=== PATIENT | female | born 1970 | race Caucasian/White ===

== ENCOUNTER 2016-09-22 00:43 | Emergency (ER) | payer OTHER ==
[~2016-09-22] VITALS: Ht 170.2 cm; Wt 106.0 kg
[2016-09-22] MEDS ORDERED: JANU100T14 (01:13)
[2016-09-22] MEDS ORDERED: ATOR80TA59 (01:13)
[2016-09-22] MEDS ORDERED: PROAAER10 (01:13)
[2016-09-22] MEDS ORDERED: ISOS30TA4 (01:13)
[2016-09-22] MEDS ORDERED: ADV250INH (01:13)
[2016-09-22] MEDS ORDERED: BUPR150T5 (01:13)
[2016-09-22] MEDS ORDERED: NITR0.4S14 (01:13)
[2016-09-22] MEDS ORDERED: METO-346 (01:13)
[2016-09-22] MEDS ORDERED: BRIL90TA (01:13)
[2016-09-22] MEDS ORDERED: NAPR500T PO (02:40)
[2016-09-22] MEDS ORDERED: PERC5TAB12 PO (02:40)
[2016-09-22] MEDS ORDERED: ROBA500T PO (02:40)
[2016-09-22] MEDS ORDERED: KETOROLAC 60 MG/2 ML VIAL (J1885) IM ONE (02:45)
[2016-09-22] MEDS ORDERED: METHOCARBAMOL 500 MG TAB PO ONE (02:45)
[2016-09-22] MEDS ORDERED: OXYCODONE/APAP 5MG/325MG(BULK FOR ED) 1 TABLET PO ONE (02:45)
[2016-09-22 03:07] VITALS: BP 131/77
[2016-10-27] MEDS ORDERED: FLOM5CAP PO (10:24)
== END 2016-09-22 03:16 | disposition home or self-care (01) ==
LOC: M ED 02:14
DX: M54.5 Low back pain (principal); E11.9 Type 2 diabetes mellitus without complications; I10 Essential (primary) hypertension; I25.10 Atherosclerotic heart disease of native coronary artery without angina pectoris; Z79.899 Other long term (current) drug therapy; Z79.84 Long term (current) use of oral hypoglycemic drugs; F17.210 Nicotine dependence, cigarettes, uncomplicated; F12.20 Cannabis dependence, uncomplicated
CPT/HCPCS: 96372; 99282; J1885

== ENCOUNTER 2017-02-15 21:20 | Emergency (ER) | payer OTHER ==
[~2017-02-15] VITALS: Ht 170.2 cm; Wt 104.5 kg
[~2017-02-15 21:20] MED LIST: ADV250INH; ATOR80TA59; BRIL90TA; BUPR150T5; FLOM5CAP PO; ISOS30TA4; JANU100T14; METO-346; NAPR500T PO; NITR0.4S14; PERC5TAB12 PO; PROAAER10; ROBA500T PO
[2017-02-15 21:38] VITALS: BP 159/89
[2017-02-15] MEDS ORDERED: PERCOCET 5MG/325MG TAB PO ONE (23:15)
--- NOTE | 2017-02-16 00:40 | REPUSA ---
CLINICAL HISTORY: Edema. COMMENTS: Real time sonography with duplex doppler of the right lower extremity was performed with attention to the major deep venous structures. Evaluation reveals the right common femoral, superficial femoral and popliteal veins to be completely compressible without intraluminal thrombus. There is normal spontaneous phasic flow and augmentation . The greater saphenous/common femoral vein junction is patent. IMPRESSION: No evidence of DVT in right lower extremity. Thank you for your kind referral of this patient.
[2017-02-16] MEDS ORDERED: ULTR50TA8 PO (01:57)
== END 2017-02-16 02:06 | disposition home or self-care (01) ==
LOC: M ED 21:20
DX: M17.11 Unilateral primary osteoarthritis, right knee (principal); Z72.0 Tobacco use

== ENCOUNTER 2018-05-26 14:09 | Emergency (ER) | payer OTHER ==
[~2018-05-26] VITALS: Ht 170.2 cm; Wt 102.3 kg
[~2018-05-26 14:09] MED LIST changes: +FLOM0.4C39 PO; -FLOM5CAP PO; +NAPR-50 PO; -NAPR500T PO; +ULTR50TA8 PO
[2018-05-26] MEDS ORDERED: METO1TAB32 (14:22)
[2018-05-26] MEDS ORDERED: IPRATROPIUM 0.5MG/ALBUTEROL 2.5MG INH SOL UD 3ML (DUONEB)(J7620) NEB ONE (17:00)
[2018-05-26] MEDS ORDERED: predniSONE 20 MG TAB PO ONE (17:00)
[2018-05-26] MEDS ORDERED: ZITHTAB PO (18:01)
[2018-05-26] MEDS ORDERED: PRED20TA PO (18:01)
[2018-05-26 18:06] VITALS: BP 128/75
--- NOTE | 2018-05-27 07:45 | REP ---
Clinical: Cough. Technique: PA and lateral. Comparison: 07/19/2015. Findings: Very subtle areas of opacity involve the left infrahilar lower lobe which should be correlated with auscultation and may represent early infiltrate/pneumonia. Associated left hilar adenopathy cannot be excluded as well. No further consolidation. No effusion. No pneumothorax. Mediastinum and cardiac silhouette are normal. Skeletal structures are intact. Calcific tendinopathy involving the left shoulder noted. Impression: Left hilar adenopathy and subtle left lower lobe opacity may reflect infiltrate/ pneumonia and correlation is recommended. Electronically Signed by Wiliam Hart MD 05/26/2018 03:05 P
--- NOTE | 2018-05-27 16:18 | ED PDOC ---
Post-Departure Follow-Up certified letter sent to pt re formal read of cxr. see report. needs fu. obtain pcp name/# and fax Bart Medrano MD May 27, 2018 16:18
== END 2018-05-26 18:08 | disposition home or self-care (01) ==
LOC: M ED 14:09
DX: J18.1 Lobar pneumonia, unspecified organism (principal); I48.91 Unspecified atrial fibrillation; I25.2 Old myocardial infarction; E78.5 Hyperlipidemia, unspecified; R51 Headache; M54.9 Dorsalgia, unspecified; Z95.5 Presence of coronary angioplasty implant and graft; F17.200 Nicotine dependence, unspecified, uncomplicated; Z88.8 Allergy status to other drugs, medicaments and biological substances; Z79.899 Other long term (current) drug therapy; Z79.51 Long term (current) use of inhaled steroids; Z79.84 Long term (current) use of oral hypoglycemic drugs

== ENCOUNTER → 2018-05-31 | Outpatient (CLI) | payer OTHER ==
[~2018-05-31] MED LIST changes: +METO1TAB32; +PRED20TA PO; +ZITHTAB PO
--- NOTE | 2018-05-31 10:29 | REP ---
Clinical: History of pneumonia. . Comparison: 05/26/2018 . Technique: PA and lateral. Findings: The mediastinum and cardiac silhouette are normal. Demonstrate mild coarsened interstitial markings which may reflect chronic reactive airway disease or bronchitis. No discrete focal consolidation, effusion, or pneumothorax. Impression: 1. No focal consolidation. Electronically Signed by Wiliam Hart MD 05/31/2018 10:21 A
== END ==
LOC: M LRY 10:04
PROVIDERS: ATTEND Nurse Practitioner Family
DX: Z87.01 Personal history of pneumonia (recurrent) (principal)

== ENCOUNTER 2021-01-19 13:07 | Emergency (ER) | payer OTHER ==
[~2021-01-19] VITALS: Ht 167.6 cm; Wt 95.5 kg
[~2021-01-19 13:07] MED LIST changes: +ISOS1TAB35; -ISOS30TA4; -NAPR-50 PO; +NAPR-837 PO
[2021-01-19] MEDS ORDERED: BRIL90TA PO (13:14)
--- OUTSIDE RECORDS SUMMARY | 2021-01-19 13:17 | CCD ---
Author Author [facility] Address Unknown Phone Unavailable Support Name Relationship Address Phone UE Next Of Kin Unknown Unavailable NAVARRO [place] [id number] Re-disclosure Warning The records that you are about to access may contain information from federally-assisted alcohol or drug abuse programs. If such information is present, then the following federally mandated warning applies: This information has been disclosed to you from records protected by federal confidentiality rules (42 CFR part 2). The federal rules prohibit you from making any further disclosure of this information unless further disclosure is expressly permitted by the written consent of the person to whom it pertains or as otherwise permitted by 42 CFR part 2. A general authorization for the release of medical or other information is NOT sufficient for this purpose. The Federal rules restrict any use of the information to criminally investigate or prosecute any alcohol or drug abuse patient.The records that you are about to access may contain highly sensitive health information, the redisclosure of which is protected by Article 27-F of the [facility] Public Health law. If you continue you may have access to information: Regarding HIV / AIDS; Provided by facilities licensed or operated by the [facility] Office of Mental Health; or Provided by the [facility] Office for People With Developmental Disabilities. If such information is present, then the following [facility] mandated warning applies: This information has been disclosed to you from confidential records which are protected by state law. State law prohibits you from making any further disclosure of this information without the specific written consent of the person to whom it pertains, or as otherwise permitted by law. Any unauthorized further disclosure in violation of state law may result in a fine or detention sentence or both. A general authorization for the release of medical or other information is NOT sufficient authorization for further disc losure. Immunizations Vaccine Date Status Description Data Source(s) COVID-19 VACCINE Moderna 10/27/2020 12:00:00 AM EDT completed [facility] Vaccine Series Complete: NOThis Data was Submitted to [facility] Via [employer] Medications No Information Insurance Providers Payer name Policy type / Coverage type Policy ID Covered libertarian ID Covered libertarian's relationship to cruz Policy Cruz Plan Information [facility] [id number] [facility] [id number] SP [id number] [facility] [id number] ANSI-Commercial [id number] [facility] O [id number] S [id number] [facility] O [id number] S [id number] [facility] P [id number] S [id number] P UNAVAILABLE UNAVAILA BLE [facility] [id number] [facility] [id number] [facility] [id number] SELF PAY UNAVAILABLE UNAVAILA BLE [facility] [id number] OTHER1 [id number] Problems, Conditions, and Diagnoses No Information Surgeries/Procedures No Information Results No Information Social History No Information
--- OUTSIDE RECORDS SUMMARY | 2021-01-19 17:25 | CCD ---
Author [facility] Address Unknown Phone Unavailable Support Name Relationship Address Phone UE Next Of Kin Unknown Unavailable NAVARRO [place] [address] Re-disclosure Warning The records that you are [...] is protected by Article 27-F of the [facility] Public Health law. If you continue you may have access to information: Regarding HIV / AIDS; Provided by facilities licensed or operated by the [facility] Office of Mental Health; or Provided by the [facility] Office for People With Developmental Disabilities. If such information is present, then the following [facility] mandated warning applies: This information has [...] law may result in a fine or alf sentence or both. A general authorization for the release of medical or other information is NOT sufficient authorization for further disc losure. Immunizations Vaccine Date Status Description Data Source(s) COVID-19 VACCINE Moderna 10/27/2020 12:00:00 AM EDT completed [facility] Vaccine Series Complete: NOThis Data was Submitted to [facility] Via [employer]. Medications No Information Insurance Providers Payer name Policy type / Coverage type Policy ID Covered green party ID Covered green party's relationship to cruz Policy Cruz Plan Information [facility] [id number] [facility] [id number] SP [id number] [facility] [id number] ANSI-Commercial [id number] [facility] O [id number] S [id number] [facility] O [id number] S [id number] [facility] P [id number] S [id number] P UNAVAILABLE UNAVAILA BLE [facility] [id number] [facility] [id number] [facility] [place] 2] [id number] SELF PAY UNAVAILABLE UNAVAILA BLE [facility] [id number] OTHER1 [id number] Problems, Conditions, and Diagnoses No Information Surgeries/Procedures No Information Results No Information Social History No Information
--- NOTE | 2021-01-19 20:06 | REPVR ---
PROCEDURE INFORMATION: Exam: CT Abdomen And Pelvis Without Contrast Exam date and time: 01/19/2021 6:47 PM Age: 50 years old Clinical indication: Abdominal pain; Localized; Right; Additional info: Right flank pain TECHNIQUE: Imaging protocol: Computed tomography of the abdomen and pelvis without contrast. Radiation optimization: All CT scans at this facility use at least one of these dose optimization techniques: automated exposure control; mA and/or kV adjustment per patient size (includes targeted exams where dose is matched to clinical indication); or iterative reconstruction. COMPARISON: CT ABD PELVIS W/O CONTRAST 10/27/2016 8:49 AM FINDINGS: Lungs: The imaged portions of the lung bases are clear. The lungs were not fully imaged. Heart: No cardiomegaly or pericardial effusion is noted. There are coronary artery calcifications. Liver: No liver lesion is seen. The contour of the liver is smooth. The liver is enlarged and in craniocaudal dimension and at the level of the right midclavicular line, the liver measures 16.3 cm. Gallbladder and bile ducts: No calcified gallstones are noted. No gallbladder wall thickening, pericholecystic fluid, or pericholecystic inflammatory changes are identified. Pancreas: Unremarkable. No dilation of the main pancreatic duct is noted. Spleen: Unremarkable. No splenomegaly is noted. Adrenal glands: Normal. No adrenal mass is noted. Kidneys and ureters: The kidneys are unremarkable. No renal lesion is noted. No stones are noted in the kidneys or ureters. There is no hydronephrosis or hydroureter. Stomach and bowel: The stomach is decompressed, limiting its optimal evaluation. The small bowel is unremarkable. There is no evidence for a bowel obstruction, diverticulosis, diverticulitis, colitis, perforated viscus, pneumatosis intestinalis, intussusception, or volvulus. There is a mild amount of formed stool in the colon. Appendix: The retrocecal appendix is normal. No evidence for appendicitis. Intraperitoneal space: No free air. No ascites. No abscess. Retroperitoneal space: Unremarkable. Vasculature: The abdominal aorta is normal in caliber. There are mild atherosclerotic calcifications. Lymph nodes: No enlarged lymph nodes. Urinary bladder: The partially distended urinary bladder is unremarkable. No stones or masses are seen in the bladder. Reproductive: There is a lobulated contour involving the dorsal aspect of the fundus of the uterus, which is similar in appearance compared to the CT abdomen and pelvis on 10/27/2016, and likely represents a uterine fibroid. The ovaries are unremarkable. Bones/joints: There is no fracture. There are degenerative changes involving the lower thoracic spine and lumbar spine. There is a grade 1 anterolisthesis of L4 on L5 secondary to severe osteoarthritis of the L4-L5 facet joints. There is mild osteoarthritis of both hips. Incidental note is made of small bone islands in the femoral heads, which are unchanged compared to the CT abdomen and pelvis on 10/27/2016. Soft tissues: Unremarkable. No hernia. No soft tissue fluid collection. IMPRESSION: 1. No stones in the kidneys, ureters, or urinary bladder. No hydronephrosis or hydroureter. 2. Hepatomegaly. Electronically signed by: Jamey Garnett On 01/19/2021 20:06:26 PM
[2021-01-19] MEDS ORDERED: CIPR-249 PO (20:23)
[2021-01-19] MEDS ORDERED: CIPROFLOXACIN 500MG TABLET PO ONE (20:25)
[2021-01-19 20:35] VITALS: BP 121/77
== END 2021-01-19 20:39 | disposition home or self-care (01) ==
LOC: M ED 13:07
DX: N30.90 Cystitis, unspecified without hematuria (principal); I48.91 Unspecified atrial fibrillation; I25.2 Old myocardial infarction; I10 Essential (primary) hypertension; E78.5 Hyperlipidemia, unspecified; F17.210 Nicotine dependence, cigarettes, uncomplicated; N80.9 Endometriosis, unspecified; Z79.899 Other long term (current) drug therapy; Z91.041 Radiographic dye allergy status; Z88.8 Allergy status to other drugs, medicaments and biological substances; Z95.1 Presence of aortocoronary bypass graft; Z98.890 Other specified postprocedural states

== ENCOUNTER 2021-10-15 21:22 | Emergency (ER) | payer OTHER ==
[~2021-10-15] VITALS: Ht 170.2 cm; Wt 96.8 kg
[2021-10-15 21:22] VITALS: BP 161/84
[~2021-10-15 21:22] MED LIST changes: +BRIL90TA PO; +BUPR-71; -BUPR150T5; +CIPR-249 PO
[2021-10-15] MEDS ORDERED: ASPI81TA26 PO (21:27)
== END 2021-10-16 01:59 | disposition left against medical advice (07) ==
LOC: M ED 21:22
DX: Z53.21 Procedure and treatment not carried out due to patient leaving prior to being seen by health care provider (principal)

== ENCOUNTER 2021-11-01 15:31 | Emergency (ER) | payer OTHER ==
[~2021-11-01] VITALS: Ht 170.2 cm; Wt 96.9 kg
[~2021-11-01 15:31] MED LIST changes: +ASPI81TA26 PO
[2021-11-01 19:21] LABS: BASO # 0.1 10^3/uL (0.0-0.2); BASO % 0.5 % (0.0-1.0); EOS # 0.3 10^3/uL (0.0-0.5); EOS % 3.4 % (0.0-3.0); HEMATOCRIT 44.3 % (36.0-47.0); LYMPH # 3.8 10^3/uL (1.5-5.0); LYMPH % 39.5 % (24.0-44.0); MEAN CORPUSCULAR HEMOGLOBIN 31.6 pg (27.0-33.0); MEAN CORPUSCULAR HGB CONC 33.9 g/dl (32.0-36.5); MEAN CORPUSCULAR VOLUME 93.5 fl (80.0-96.0); MONO # 0.7 10^3/uL (0.0-0.8); MONO % 7.4 % (2.0-8.0); NEUTROPHILS # 4.7 10^3/uL (1.5-8.5); PLATELET COUNT, AUTOMATED 278 10^3/uL (150-450); RED BLOOD COUNT 4.74 10^6/uL (4.00-5.40); WHITE BLOOD COUNT 9.5 10^3/uL (4.0-10.0)
[2021-11-01 20:52] VITALS: BP 141/91
== END 2021-11-01 20:53 | disposition home or self-care (01) ==
LOC: M ED 15:31
DX: R31.9 Hematuria, unspecified (principal); E66.9 Obesity, unspecified; I48.91 Unspecified atrial fibrillation; E11.9 Type 2 diabetes mellitus without complications; I10 Essential (primary) hypertension; M54.9 Dorsalgia, unspecified; E03.9 Hypothyroidism, unspecified; F17.200 Nicotine dependence, unspecified, uncomplicated; Z79.899 Other long term (current) drug therapy; Z91.89 Other specified personal risk factors, not elsewhere classified; Z88.8 Allergy status to other drugs, medicaments and biological substances

== ENCOUNTER 2023-01-10 15:43 | Emergency (ER) | payer OTHER ==
[~2023-01-10] VITALS: Ht 167.6 cm; Wt 97.7 kg
[2023-01-10 17:04] LABS: BASO % 0.4 % (0.0-1.0); EOS # 0.2 10^3/uL (0.0-0.5); EOS % 2.2 % (0.0-3.0); HEMATOCRIT 47.4 % (36.0-47.0); HEMOGLOBIN 16.4 g/dl (12.0-15.5); LYMPH # 3.6 10^3/uL (1.5-5.0); LYMPH % 32.9 % (24.0-44.0); MEAN CORPUSCULAR HEMOGLOBIN 32.1 pg (27.0-33.0); MEAN CORPUSCULAR HGB CONC 34.6 g/dl (32.0-36.5); MEAN CORPUSCULAR VOLUME 92.8 fl (80.0-96.0); MONO # 0.8 10^3/uL (0.0-0.8); MONO % 7.3 % (2.0-8.0); NEUTROPHILS # 6.2 10^3/uL (1.5-8.5); NEUTROPHILS % 56.9 % (36.0-66.0); PLATELET COUNT, AUTOMATED 316 10^3/uL (150-450); RED BLOOD COUNT 5.11 10^6/uL (4.00-5.40); WHITE BLOOD COUNT 10.8 10^3/uL (4.0-10.0)
[2023-01-10] MEDS ORDERED: NITROGLYCERIN 2% OINT 1 GM *U/D* PKT TOP ONE (17:05)
[2023-01-10] MEDS ORDERED: JARD1TAB (17:11)
[2023-01-10] MEDS ORDERED: METF500T13 (17:11)
[2023-01-10] MEDS ORDERED: FENO145T7 (17:11)
[2023-01-10 17:14] LABS: INR 1.07; PROTHROMBIN TIME 13.6 SECONDS (12.5-14.5)
[2023-01-10 17:15] LABS: PARTIAL THROMBOPLASTIN TIME 35.1 SECONDS (24.8-34.2)
[2023-01-10 17:27] LABS: LIPASE 57 U/L (12-53)
[2023-01-10 17:28] LABS: ETHYL ALCOHOL (ETHANOL) < 0.003 % (0.000-0.010)
[2023-01-10 17:29] LABS: ALBUMIN 4.1 G/DL (3.2-5.2); ALKALINE PHOSPHATASE 76 U/L (46-116); ALT/SGPT 36 U/L (7.0-40); AST/SGOT 31 U/L (<34); BILIRUBIN,DIRECT 0.1 MG/DL (<0.4); BILIRUBIN,TOTAL 0.4 MG/DL (0.3-1.2); BLOOD UREA NITROGEN 11 MG/DL (9-23); CALCIUM LEVEL 9.5 MG/DL (8.5-10.1); CARBON DIOXIDE LEVEL 24 MMOL/L (20-31); CHLORIDE LEVEL 106 MMOL/L (98-107); CK-MB VALUE MASS 1.2 NG/ML (<3.6); CREATININE FOR GFR 0.58 MG/DL (0.55-1.30); GLOMERULAR FILTRATION RATE > 60.0 (>51); GLUCOSE, FASTING 92 MG/DL (60-100); SODIUM LEVEL 140 MMOL/L (136-145); TOTAL PROTEIN 7.3 G/DL (5.7-8.2)
[2023-01-10 17:33] LABS: THYROID STIMULATING HORMONE 1.401 uIU/ML (0.55-4.78)
[2023-01-10 17:34] LABS: CPK CREATINE PHOSPHOKINASE 108 U/L (34-145); MB/CK RELATIVE INDEX 1.11 (< OR =4)
[2023-01-10] MEDS ORDERED: ACETAMINOPHEN TAB 650MG DOSE (2X325MG) PO ONE (17:35)
[2023-01-10] MEDS ORDERED: ISOVUE-370 76% 100ML VIAL As Ordered ONE (18:12)
[2023-01-10 18:39] LABS: CK-MB VALUE MASS 1.2 NG/ML (<3.6)
[2023-01-10 18:41] LABS: MB/CK RELATIVE INDEX 1.11 (< OR =4)
[2023-01-10] MEDS ORDERED: OMEP40CA4 PO (18:58)
[2023-01-10] MEDS ORDERED: SUCR1TA PO (18:58)
[2023-01-10] MEDS ORDERED: SUCRALFATE 1 GM TAB PO ONE (19:00)
[2023-01-10 19:14] LABS: AMPHETAMINES LEVEL URINE NEGATIVE (NEGATIVE)
[2023-01-10 19:15] VITALS: BP 138/78
[2023-01-10 19:15] LABS: BARBITURATES URINE NEGATIVE (NEGATIVE); BENZODIAZEPINES URINE NEGATIVE (NEGATIVE); CANNABINOIDS URINE NEGATIVE (NEGATIVE); COCAINE METABOLITE URINE NEGATIVE (NEGATIVE); METHADONE URINE NEGATIVE (NEGATIVE); OPIATES URINE NEGATIVE (NEGATIVE); PHENCYCLIDINE URINE NEGATIVE (NEGATIVE)
[2023-01-10 19:16] VITALS: TEMP 98; O2SAT 97
== END 2023-01-10 19:29 | disposition home or self-care (01) ==
LOC: M ED 15:43
DX: R07.89 Other chest pain (principal); I11.9 Hypertensive heart disease without heart failure; I48.91 Unspecified atrial fibrillation; E11.9 Type 2 diabetes mellitus without complications; M54.9 Dorsalgia, unspecified; Z95.5 Presence of coronary angioplasty implant and graft; F17.200 Nicotine dependence, unspecified, uncomplicated; Z88.8 Allergy status to other drugs, medicaments and biological substances; Z79.82 Long term (current) use of aspirin; Z79.84 Long term (current) use of oral hypoglycemic drugs; Z79.899 Other long term (current) drug therapy
CPT/HCPCS: 36415; 71045; 71275; 80048; 80076; 80307; 82077; 82550; 82553; 83690; 83880; 84443; 84484; 85025; 85610; 85730; 87486; 87581; 87633; 87798; 93005; 93041; 94760; 99285; Q9967

== ENCOUNTER 2023-08-20 18:55 | Emergency (ER) | payer OTHER ==
[~2023-08-20] VITALS: Ht 170.2 cm; Wt 92.0 kg
[~2023-08-20 18:55] MED LIST changes: +FENO145T7; +JARD1TAB; +METF500T13; +OMEP40CA4 PO; +SUCR1TA PO
[2023-08-20 20:52] LABS: BASO # 0.1 10^3/uL (0.0-0.2); BASO % 0.8 % (0.0-1.0); EOS # 0.4 10^3/uL (0.0-0.5); EOS % 3.6 % (0.0-3.0); HEMATOCRIT 43.5 % (36.0-47.0); HEMOGLOBIN 15.1 g/dl (12.0-15.5); LYMPH # 3.7 10^3/uL (1.5-5.0); LYMPH % 31.6 % (24.0-44.0); MEAN CORPUSCULAR HEMOGLOBIN 32.3 pg (27.0-33.0); MEAN CORPUSCULAR HGB CONC 34.7 g/dl (32.0-36.5); MEAN CORPUSCULAR VOLUME 92.9 fl (80.0-96.0); MONO # 0.9 10^3/uL (0.0-0.8); MONO % 7.8 % (2.0-8.0); NEUTROPHILS # 6.5 10^3/uL (1.5-8.5); NEUTROPHILS % 55.9 % (36.0-66.0); PLATELET COUNT, AUTOMATED 295 10^3/uL (150-450); RED BLOOD COUNT 4.68 10^6/uL (4.00-5.40); WHITE BLOOD COUNT 11.6 10^3/uL (4.0-10.0)
[2023-08-20 21:14] LABS: C REACTIVE PROTEIN QUANTITATIV < 0.40 MG/DL (<1.0)
[2023-08-20 21:16] LABS: BLOOD UREA NITROGEN 12 MG/DL (9-23); CALCIUM LEVEL 9.2 MG/DL (8.5-10.1); CARBON DIOXIDE LEVEL 24 MMOL/L (20-31); CHLORIDE LEVEL 112 MMOL/L (98-107); CREATININE FOR GFR 0.62 MG/DL (0.55-1.30); ERYTHROCYTE SEDIMENTATION RATE 25 mm/hr (0-30); GLOMERULAR FILTRATION RATE > 60.0 (>51); GLUCOSE, FASTING 94 MG/DL (60-100); SODIUM LEVEL 143 MMOL/L (136-145)
[2023-08-20] MEDS ORDERED: BACT800T5 PO (22:46)
[2023-08-20] MEDS: BACTRIM 160MG/800MG DS TAB PO ONE (22:55)
[2023-08-20 22:57] VITALS: BP 122/68; TEMP 97.1; O2SAT 96
[2023-08-20] MEDS ORDERED: FLUC150T9 PO (22:59)
== END 2023-08-20 23:01 | disposition home or self-care (01) ==
LOC: M ED 18:55
DX: L03.90 Cellulitis, unspecified (principal); I48.91 Unspecified atrial fibrillation; I25.2 Old myocardial infarction; E11.9 Type 2 diabetes mellitus without complications; I10 Essential (primary) hypertension; E78.5 Hyperlipidemia, unspecified; Z95.5 Presence of coronary angioplasty implant and graft; Z79.82 Long term (current) use of aspirin; Z79.84 Long term (current) use of oral hypoglycemic drugs; Z79.899 Other long term (current) drug therapy; Z88.8 Allergy status to other drugs, medicaments and biological substances

== ENCOUNTER 2023-10-06 17:53 | Emergency (ER) | payer OTHER ==
[~2023-10-06] VITALS: Ht 170.2 cm; Wt 90.3 kg
[~2023-10-06 17:53] MED LIST changes: +BACT800T5 PO; +FLUC150T9 PO
[2023-10-06] MEDS ORDERED: ALBU2.5V10 (18:03)
[2023-10-06] MEDS ORDERED: SEMA0.257 (18:03)
[2023-10-06] MEDS ORDERED: EZET10TA21 (18:03)
[2023-10-06 22:22] VITALS: BP 137/85; TEMP 96.6; O2SAT 98
== END 2023-10-06 22:23 | disposition home or self-care (01) ==
LOC: M ED 17:53
DX: R30.0 Dysuria (principal); I48.91 Unspecified atrial fibrillation; I25.10 Atherosclerotic heart disease of native coronary artery without angina pectoris; I25.2 Old myocardial infarction; E11.9 Type 2 diabetes mellitus without complications; I10 Essential (primary) hypertension; E78.5 Hyperlipidemia, unspecified; Z87.440 Personal history of urinary (tract) infections; Z87.891 Personal history of nicotine dependence; Z79.82 Long term (current) use of aspirin; Z79.899 Other long term (current) drug therapy; Z88.8 Allergy status to other drugs, medicaments and biological substances